=== PATIENT | male | born 1965 | race Caucasian/White ===

== ENCOUNTER 2018-07-13 12:17 | Emergency (ER) | payer MEDICAID ==
[2018-07-13 12:41] VITALS: BP 180/90
--- NOTE | 2018-07-13 12:49 | UC ---
UC General HPI - HPI Summary HPI Summary: 2 week hx of dpain that he describes as pressure to both ears. he tried to remove wax from r ear and make it bleed. admits to decreased hearing with this. pt questioned about his BP at time of triage. he states he knows about his high BP and has decided to not tx it. pt denies SANTOS, visual changes, cp, sob. - History of Current Complaint Chief Complaint: UCEar Stated Complaint: BI LAT EAR CONCERN Time Seen by Provider: 07/13/18 12:38 Hx Obtained From: Patient Pain Intensity: 7 Associated Signs & Symptoms: Negative: Chest Pain, Dizziness, Fever, Headache, Nausea, Syncope - Allergy/Home Medications Allergies/Adverse Reactions: Allergies Allergy/AdvReac Type Severity Reaction Status Date / Time onion Allergy Anaphylatic Verified 07/13/18 12:41 Shock PMH/Surg Hx/FS Hx/Imm Hx Cardiovascular History: Hypertension - pt opting to not tx - Surgical History Surgical History: Yes Surgery Procedure, Year, and Place: KNEE SCOPE. TONSILLECTOMY - Family History Known Family History: Positive: Hypertension - Social History Occupation: Employed Full-time Alcohol Use: None Substance Use Type: Marijuana Substance Use Comment - Amount & Last Used: 3 TIMES A DAY Smoking Status (MU): Heavy Every Day Tobacco Smoker Amount Used/How Often: 1 PPD Review of Systems All Other Systems Reviewed And Are Negative: Yes Constitutional: Positive: Negative Skin: Positive: Negative Eyes: Positive: Negative ENT: Positive: Ear Ache - "pressure" Respiratory: Positive: Negative Cardiovascular: Positive: Negative Gastrointestinal: Positive: Negative Genitourinary: Positive: Negative Motor: Positive: Negative Neurovascular: Positive: Negative Musculoskeletal: Positive: Negative Neurological: Positive: Negative Psychological: Positive: Negative Physical Exam Triage Information Reviewed: Yes Appearance: Well-Appearing Vital Signs: Initial Vital Signs Temp 98.7 F 07/13/18 12:37 Pulse 78 07/13/18 12:37 Resp 18 07/13/18 12:37 BP 180/90 07/13/18 12:37 Pulse Ox 98 07/13/18 12:37 Eye Exam: Normal ENT: Positive: Pharynx normal, Other - TM's occluded by cerumen. No auricular adenopathy or mastoid tenderness.. Negative: Nasal congestion, Nasal drainage Respiratory: Positive: Lungs clear, Normal breath sounds Cardiovascular: Positive: RRR, No Murmur Abdomen Description: Positive: Nontender, No Organomegaly, Soft. Negative: Distended, Guarding Bowel Sounds: Positive: Present Musculoskeletal: Positive: ROM Intact Neurological: Positive: Alert, Other: - CN 2-12 grossly intact. Psychological: Positive: Age Appropriate Behavior Skin Exam: Normal Re-Evaluation - Re-Evaluation First Eval Re-Evaluation Time: 13:35 Change: Improved - L canal clear. R still has some cerumen. Portion of canal seen is very injected. Flushed, a little more wax removed. but wax plug remains. will soak canal with peroxide and reflush. Second Eval Re-Evaluation Time: 14:01 Change: Improved - I was able to flush cotton fron Qtip that had layer of wax from R canal. again canal and tm injected thus will tx with po andear drop antibiotics. Course/Dx - Course Course Of Treatment: At time of exam, pt counseled about the affects of untreated HTN. He was strongly encouraged to f/u and start BP tx despite him telling me he is opting to not tx. . Pt states he will consider it. I will refer him to [facility]. No s/s's of hypertensive emergency. - Differential Dx - Multi-Symptom Differential Diagnoses: Other - otitis media and externa. cerumen impaction. canal abrasion. - Diagnoses Provider Diagnosis: Excessive cerumen in both ear canals, Otitis externa, Otitis media Discharge - Sign-Out/Discharge Documenting (check all that apply): Patient Departure All imaging exams completed and their final reports reviewed: No Studies - Discharge Plan Condition: Stable Disposition: HOME Prescriptions: Amoxicillin PO (*) [Amoxicillin 875 MG (*)] 875 mg PO BID 7 Days #14 tab Ciproflox/Dexameth OTIC.SUSP* [Ciprodex OTIC.SUSP*] 4 drop .SEE ORDER BID 7 Days #1 btl Patient Education Materials: Cerumen Impaction (ED), Hypertension (ED), Otitis Externa (DC), Ear Infection (ED) Referrals: MICK Mora [Medical Doctor] - As Soon As Possible Additional Instructions: CALL TODAY FOR FOLLOWUP SOON POSSIBLE FOR HYPERTENSION EVALUATION AND TREATMENT. - Billing Disposition and Condition Condition: STABLE Disposition: Home
== END 2018-07-13 14:15 | disposition home or self-care (01) ==
LOC: UCCORT 12:17
DX: J02.9 Acute pharyngitis, unspecified (principal)
CPT/HCPCS: 99203; G0463